=== PATIENT | male | born 1965 | race Caucasian/White ===

== ENCOUNTER → 2022-08-22 | Outpatient (REF) | LOC: M RAD 14:42 | PROVIDERS: ATTEND Family Medicine | DX: M25.551 Pain in right hip (principal) ==

== ENCOUNTER → 2023-01-16 | Outpatient (CLI) | payer OTHER ==
[~2023-01-16] MED LIST: **SFHN** BUPIVACAINE HCL 0.5% 10ML VIAL ONE; **SFHN** LIDOCAINE 1% MDV 20ML VIAL ONE; ISOVUE-300 61% 100ML VIAL ONE; methylPREDNISolone 80MG/ML SUSP 1ML VIAL ONE
== END ==
LOC: M PLAIMG 13:36
PROVIDERS: ATTEND Orthopaedic Surgery
DX: M16.11 Unilateral primary osteoarthritis, right hip (principal)
CPT/HCPCS: 20610; 77002; J1040; Q9967

== ENCOUNTER → 2023-02-19 | Outpatient (CLI) | payer OTHER | LOC: M SOG 09:17 | PROVIDERS: ATTEND Orthopaedic Surgery | DX: M16.11 Unilateral primary osteoarthritis, right hip (principal) ==

== ENCOUNTER → 2023-07-08 | Outpatient (CLI) | payer OTHER | LOC: M SOG 07:56 | PROVIDERS: ATTEND Orthopaedic Surgery | DX: M16.31 Unilateral osteoarthritis resulting from hip dysplasia, right hip (principal) ==

== ENCOUNTER → 2023-09-23 | Outpatient (CLI) | payer OTHER ==
[~2023-09-23] MED LIST changes: -**SFHN** BUPIVACAINE HCL 0.5% 10ML VIAL ONE; -**SFHN** LIDOCAINE 1% MDV 20ML VIAL ONE; +ATEN50TA2 PO; +DICL75TA PO; -ISOVUE-300 61% 100ML VIAL ONE; +LISI20TA33 PO; +MAGN400C PO; +METF10004 PO; +PIOG1TAB55 PO; +SILD100T PO; +VITMTA PO; -methylPREDNISolone 80MG/ML SUSP 1ML VIAL ONE
== END ==
LOC: M RAD 13:36
PROVIDERS: ATTEND Orthopaedic Surgery
DX: M16.31 Unilateral osteoarthritis resulting from hip dysplasia, right hip (principal); M16.12 Unilateral primary osteoarthritis, left hip

== ENCOUNTER → 2023-11-20 | Outpatient (CLI) | payer OTHER ==
[~2023-11-20] MED LIST changes: +ASPI81TAEC PO; +CEFA500C2 PO; +CELE100C PO; +HYDR-3715 PO; +MUPI2OI EXT; +ROSU10TA6 PO
== END ==
LOC: M SOG 08:12
PROVIDERS: ATTEND Orthopaedic Surgery
DX: Z96.641 Presence of right artificial hip joint (principal)

== ENCOUNTER → 2024-02-19 | Outpatient (CLI) | payer OTHER | LOC: M SOG 15:16 | PROVIDERS: ATTEND Orthopaedic Surgery | DX: Z96.641 Presence of right artificial hip joint (principal); Z53.9 Procedure and treatment not carried out, unspecified reason ==

== ENCOUNTER → 2024-03-31 | Outpatient (CLI) | payer OTHER ==
[~2024-03-31] MED LIST changes: -ROSU10TA6 PO; +ROSU10TA61 PO
== END ==
LOC: M SOG 07:56
PROVIDERS: ATTEND Orthopaedic Surgery
DX: Z96.641 Presence of right artificial hip joint (principal); Z47.1 Aftercare following joint replacement surgery

== ENCOUNTER → 2024-09-22 | Outpatient (CLI) | payer OTHER | LOC: M SOG 07:52 | PROVIDERS: ATTEND Orthopaedic Surgery | DX: Z47.1 Aftercare following joint replacement surgery (principal); Z96.641 Presence of right artificial hip joint; M16.12 Unilateral primary osteoarthritis, left hip ==

== ENCOUNTER 2024-10-31 12:22 | Emergency (ER) | payer OTHER ==
[2024-10-31 12:32] VITALS: BP 187/84; TEMP 96.7; O2SAT 99
[2024-10-31 13:12] LABS: BASO % 0.5 % (0.0-1.0); EOS # 0.1 10^3/uL (0.0-0.5); EOS % 2.4 % (0.0-3.0); HEMATOCRIT 45.7 % (42.0-52.0); HEMOGLOBIN 16.1 g/dl (13.5-17.5); LYMPH # 1.7 10^3/uL (1.5-5.0); LYMPH % 29.2 % (24.0-44.0); MEAN CORPUSCULAR HEMOGLOBIN 31.6 pg (27.0-33.0); MEAN CORPUSCULAR HGB CONC 35.2 g/dl (32.0-36.5); MEAN CORPUSCULAR VOLUME 89.8 fl (80.0-96.0); MONO # 0.5 10^3/uL (0.0-0.8); MONO % 8.1 % (2.0-8.0); NEUTROPHILS # 3.5 10^3/uL (1.5-8.5); NEUTROPHILS % 59.5 % (36.0-66.0); PLATELET COUNT, AUTOMATED 168 10^3/uL (150-450); RED BLOOD COUNT 5.09 10^6/uL (4.30-6.10); WHITE BLOOD COUNT 5.9 10^3/uL (4.0-10.0)
[2024-10-31 13:35] LABS: BLOOD UREA NITROGEN 17 MG/DL (9-23); CALCIUM LEVEL 8.8 MG/DL (8.5-10.1); CARBON DIOXIDE LEVEL 30 MMOL/L (20-31); CHLORIDE LEVEL 106 MMOL/L (98-107); CREATININE FOR GFR 0.99 MG/DL (0.70-1.30); GLOMERULAR FILTRATION RATE > 60.0 (>56); GLUCOSE, FASTING 144 MG/DL (60-100); POTASSIUM SERUM 4.8 MMOL/L (3.5-5.1); SODIUM LEVEL 141 MMOL/L (136-145)
[2024-10-31 14:15] LABS: Trichomonas vaginalis (AMP) NOT DETECTED (NEGATIVE)
[2024-10-31 14:39] LABS: GC DNA AMPLIFICATION NEGATIVE (NEGATIVE)
[2024-10-31] MEDS ORDERED: CIPR-249 PO (15:39)
[2024-10-31] MEDS ORDERED: IBUP-1022 PO (15:39)
== END 2024-10-31 15:43 | disposition home or self-care (01) ==
LOC: M ED 12:22
DX: N43.3 Hydrocele, unspecified (principal); I86.1 Scrotal varices; I10 Essential (primary) hypertension; E11.9 Type 2 diabetes mellitus without complications; Z79.4 Long term (current) use of insulin; Z79.811 Long term (current) use of aromatase inhibitors; Z79.2 Long term (current) use of antibiotics; Z79.899 Other long term (current) drug therapy

== ENCOUNTER 2025-01-30 08:56 | Day surgery (SDC) | payer OTHER ==
[~2025-01-30] VITALS: Ht 180.3 cm; Wt 129.5 kg
[2025-01-30] MEDS: LIDOCAINE 2% MDV 20ML VIAL As Ordered ONE (08:54)
[~2025-01-30 08:56] MED LIST changes: +CHOL50003 PO; +CIPR-249 PO; +IBUP-1022 PO; +LISI10TA22 PO; +LORA-1041 PO; +THERTAB52 PO; +VITA500C24 PO; +ceFAZolin SOD 2 GM IV ONCE IV ONE
[2025-01-30] MEDS ORDERED: LR 1,000 ML IV SCH ×2 (09:00→10:25)
[2025-01-30] MEDS ORDERED: fentaNYL 100 MCG/2 ML INJECTION As Ordered ONE (09:29)
[2025-01-30] MEDS ORDERED: ONDANSETRON 4MG 2ML VIAL As Ordered ONE (09:29)
[2025-01-30] MEDS ORDERED: ROCURONIUM BROMIDE 50MG/5ML VIAL As Ordered ONE (09:29)
[2025-01-30] MEDS ORDERED: propofoL 200 MG/20 ML VIAL As Ordered ONE (09:29)
[2025-01-30] MEDS ORDERED: LIDOCAINE 2% 100MG/5ML SDV (FOR ANES.) As Ordered ONE (09:29)
[2025-01-30] MEDS ORDERED: MIDAZOLAM INJ 2MG/2ML VIAL As Ordered ONE (09:30)
[2025-01-30] MEDS ORDERED: KETOROLAC 30 MG/ML 1ML VIAL As Ordered ONE (09:35)
[2025-01-30] MEDS ORDERED: ceFAZolin SODIUM 3 GM VIAL As Ordered ONE (09:44)
[2025-01-30] MEDS: ceFAZolin SOD 3 GM in DEXTROSE 5% (D5W) MINI-BAG PLU 1... IV ONE (09:45)
[2025-01-30] MEDS ORDERED: VASOPRESSIN INJ 20UNITS/ML 1ML VIAL As Ordered ONE (09:54)
[2025-01-30] MEDS: POLYSPORIN TOPICAL OINTMENT 15GM As Ordered ONE (10:01)
[2025-01-30] MEDS ORDERED: GLYCOPYRROLATE INJ 0.2 MG/ML 2 ML VIAL As Ordered ONE (10:07)
[2025-01-30] MEDS ORDERED: HYDROMORPHONE HCL 0.5 MG/ 0.5 ML SYRINGE IV PRN (10:25)
[2025-01-30] MEDS ORDERED: fentaNYL 100 MCG/2 ML INJECTION IV PRN (10:25)
[2025-01-30] MEDS ORDERED: oxyCODONE 5MG TAB PO PRN (10:25)
[2025-01-30] MEDS ORDERED: ONDANSETRON 4MG 2ML VIAL IV PRN (10:25)
[2025-01-30] MEDS ORDERED: HYDR-3713 PO (10:32)
[2025-01-30] MEDS ORDERED: CEPH500C PO (10:32)
[2025-01-30 11:20] VITALS: BP 118/60; TEMP 97; O2SAT 95
== END 2025-01-30 11:52 | disposition home or self-care (01) ==
LOC: M SDC 08:56
PROVIDERS: ATTEND Urology
DX: N43.3 Hydrocele, unspecified (principal); I10 Essential (primary) hypertension; E78.5 Hyperlipidemia, unspecified; E11.9 Type 2 diabetes mellitus without complications; G47.33 Obstructive sleep apnea (adult) (pediatric); Z87.891 Personal history of nicotine dependence; Z79.84 Long term (current) use of oral hypoglycemic drugs; Z79.899 Other long term (current) drug therapy
CPT/HCPCS: 55040; 88302; J0665; J0690; J1100; J1596; J1885; J2250; J2405; J2598; J3010

== ENCOUNTER → 2025-09-26 | Outpatient (CLI) | payer OTHER ==
[~2025-09-26] MED LIST changes: +CEPH500C PO; +HYDR-3713 PO; -IBUP-1022 PO; +IBUP600T42 PO; -ROSU10TA61 PO; +ROSU10TA90 PO; -ceFAZolin SOD 2 GM IV ONCE IV ONE
== END ==
LOC: M SOG 08:34
PROVIDERS: ATTEND Orthopaedic Surgery
DX: Z96.641 Presence of right artificial hip joint (principal); Z47.1 Aftercare following joint replacement surgery